=== PATIENT | female | born 1955 | race Caucasian/White ===

== ENCOUNTER 2017-06-06 17:49 | Emergency (ER) | payer OTHER ==
[~2017-06-06] VITALS: Ht 157.5 cm; Wt 61.2 kg
--- NOTE | ~2017-06-06 | CT71 ---
[facility] A Service of [facility] & [facility] RADIOLOGY TEXT RESULTS PATIENT: TROY MIRANDA LOCATION: [facility] : 59 UNIT #: [id number] AGE: [address]: Violeta Porras MD SEX: F ORDER DR: [id number] [facility] [address] [place], [place] [address] [id number] E MR#: [id number] Acc #: [id number] NAME: TROY MIRANDA : 1955 SEX: F STUDY DATE/TIME: 06/06/2017 20:01 UNIT: [facility] ROOM: STUDY DESCRIPTION: CT Head Wo Contrast Attending Physician: Violeta Porras M.D. Ordering Physician: Violeta Porras M.D. Primary Care Physician: Primary Care Physician No MEDICAL IMAGING REPORT This report is preliminary unless electronic signature is present EXAM Head CT without HISTORY Pain to back of head, right sided of head by ear since 10 o'clock today. TECHNIQUE This CT exam was performed with one or more of the following radiation dose reduction techniques: automatic exposure control, adjustment of mA and/or kV according to patient size, and iterative reconstruction. COMMENT Routine noncontrast head CT is reviewed. There is no comparison. There is no displaced calvarial fracture. The mastoid air cells are clear. The visualized paranasal sinuses are clear. There is no evidence for acute intracranial hemorrhage or extraaxial fluid collection. The ventricles are normal in size and configuration. The stacy-white junction is relatively well-maintained. The basilar cisterns are patent. There is no intracranial mass effect. There is a calcification in the fourth ventricle on the right side which is probably a benign choroid plexus calcification. I would recommend that it be further characterized with a non-emergent MRI of the brain with and without contrast to exclude mass. This is felt unlikely. IMPRESSION No convincing evidence for acute intracranial abnormality. There is a calcification in the fourth ventricle which is probably a benign calcification associated with the choroid plexus. It is seen to the right of midline and measures about 5.0 mm in largest dimension. It is not associated with mass effect. I would recommend that it be characterized on an outpatient basis with MRI of the brain with and without contrast to exclude unlikely possibility of an associated mass. [facility]. [facility] A Service of [facility] & [facility] RADIOLOGY TEXT RESULTS PATIENT: TROY MIRANDA LOCATION: [facility] : 59 UNIT #: [id number] AGE: [address]: Violeta Porras MD SEX: F ORDER DR: Dictated by... Elmira Booth M.D. THIS IS AN ELECTRONICALLY VERIFIED REPORT Elmira Booth M.D. at 06/07/2017 10:24 AM Thang TD: 06/07/2017 09:46 JOB #: [id number] MEDICAL IMAGING REPORT Page 1 of 1 COPY
== END 2017-06-07 00:06 | disposition home or self-care (01) ==
LOC: CED 17:49
DX: R51 Headache (principal)
CPT/HCPCS: 70450; 99284